=== PATIENT | female | born 1960 | race Caucasian/White ===

== ENCOUNTER 2019-08-24 14:20 | Outpatient (CLI) | payer OTHER | END 2019-08-24 14:26 | disposition home or self-care (01) | LOC: TOM 14:20 | PROVIDERS: ATTEND Family Medicine | DX: J32.4 Chronic pansinusitis (principal) ==

== ENCOUNTER 2020-05-14 07:57 | Outpatient (CLI) | payer OTHER | END 2020-05-14 08:24 | disposition home or self-care (01) | LOC: MAMO-SONO 07:57 | PROVIDERS: ATTEND Obstetrics & Gynecology | DX: Z12.31 Encounter for screening mammogram for malignant neoplasm of breast (principal); N64.59 Other signs and symptoms in breast; N60.11 Diffuse cystic mastopathy of right breast; M54.2 Cervicalgia ==

== ENCOUNTER → 2020-07-06 08:30 | Outpatient (CLI) | payer OTHER | END | disposition home or self-care (01) | LOC: NUCLEAR 06-19 08:00 | PROVIDERS: ATTEND Family Medicine | DX: I65.22 Occlusion and stenosis of left carotid artery (principal); R73.03 Prediabetes; E78.01 Familial hypercholesterolemia ==

== ENCOUNTER 2020-09-13 09:46 | Outpatient (CLI) | payer OTHER | END 2020-09-13 09:59 | disposition home or self-care (01) | LOC: RAD 09:46 | DX: M25.532 Pain in left wrist (principal); S62.002A Unspecified fracture of navicular [scaphoid] bone of left wrist, initial encounter for closed fracture ==